=== PATIENT | female | born 1950 | race Caucasian/White ===

== ENCOUNTER 2018-04-28 19:06 | Emergency (ER) | payer MEDICARE ==
[2018-04-28 19:12] VITALS: RESP 18; TEMP 98
[2018-04-28] MEDS ORDERED: SODIUM CHLORIDE 0.9% 1,000 ML IV STA (19:27)
[2018-04-28] MEDS ORDERED: SODIUM CHLORIDE 0.9% 500 ML 500 ML IV STA (19:31)
--- NOTE | 2018-04-28 19:31 | ED ---
General Adult HPI - General Source: patient, RN notes reviewed Mode of arrival: ambulatory Limitations: no limitations <Pepe Tejeda - Last Filed: 04/28/18 21:20> <Law Silvestre - Last Filed: 04/29/18 00:02> - General Chief complaint: Recheck/Abnormal Lab/Rx Stated complaint: Hypertension Time Seen by Provider: 04/28/18 19:12 - History of Present Illness Initial comments: This is a 67-year-old female with a history of hypertension who presents tonight with complaints of not feeling well suggestive past 3 days but for the most part over last week she's had elevated blood pressure some right-sided chest pain she denies steroids for upper respiratory infection she states she's been not feeling well for this. Time shortness breath occipital headache rhinorrhea sweats sore throat. She states she is on steroids and currently on antibiotics for urinary tract infection she believes it UTI is getting better. Also complains some earaches. No other complaints no overt phlegm production with cough. Patient also states that she had a massage adjustment of her neck 2 days ago she still has pain from that. (Pepe Tejeda) - Related Data Home Medications Medication Instructions Recorded Confirmed Aspirin 81 mg PO QAM 03/31/14 06/06/16 Atorvastatin [Lipitor] 20 mg PO QAM 03/31/14 06/06/16 Losartan [Cozaar] 100 mg PO BID 03/31/14 06/06/16 metFORMIN HCL 1,000 mg PO BID 03/31/14 06/06/16 Cetirizine HCl 10 mg PO HS 11/10/14 06/06/16 [place]-3 Fatty Acids/Fish Oil [Fish 1 cap PO BID 11/10/14 06/06/16 Oil 1,000 mg Softgel] Albuterol Inhaler [Ventolin Hfa 2 puff INHALATION RT-BID 06/25/15 06/06/16 Inhaler] Omeprazole [PriLOSEC] 40 mg PO HS 06/25/15 06/06/16 Furosemide 20 mg PO QAM 03/11/16 06/06/16 Nitroglycerin Sl Tabs [Nitrostat] 0.4 mg SUBLINGUAL Q5M PRN 03/11/16 06/06/16 ALPRAZolam [Xanax] 0.25 mg PO BID PRN 06/02/16 06/06/16 Temazepam [Restoril] 15 mg PO HS PRN 06/02/16 06/06/16 cloNIDine HCL [Catapres] 0.3 mg PO HS 06/02/16 06/06/16 Allergies Allergy/AdvReac Type Severity Reaction Status Date / Time codeine Allergy Severe headache Verified 04/28/18 19:12 Iodinated Contrast- Oral and Allergy Anaphylaxis Verified 04/28/18 19:12 IV Dye [Iodinated Contrast Media - Oral and] shrimp Allergy Severe "Throat Uncoded 04/28/18 19:12 swelled shut and stopped breathing" Review of Systems ROS Other: All systems not noted in ROS Statement are negative. <Pepe Tejeda - Last Filed: 04/28/18 21:20> ROS Other: All systems not noted in ROS Statement are negative. <Law Silvestre - Last Filed: 04/29/18 00:02> ROS Statement: Those systems with pertinent positive or pertinent negative responses have been documented in the HPI. Past Medical History Past Medical History: Chest Pain / Angina, Diabetes Mellitus, Fibromyalgia, GERD /Reflux, Hyperlipidemia, Hypertension, Osteoarthritis (OA), Pneumonia, Sleep Apnea/CPAP/BIPAP Additional Past Medical History / Comment(s): 06/25/15 Pt presented to [facility] with mid chest pain which radiated up into her throat. Symptom onset at 0400 this AM. She is admitted with clinical impression of unstable angina pectoris. Other HX: NIDDM, does not use cpap for sleep apnea, sinus problems, R foot fx x 2 in the past, porokeratosis, History of Any Multi-Drug Resistant Organisms: None Reported Past Surgical History: Back Surgery, Bladder Surgery, Cholecystectomy, Heart Catheterization, Hysterectomy, Orthopedic Surgery Additional Past Surgical History / Comment(s): Cardiac cath many yrs ago which was normal, nasal/sinus surgery, arthroscopy biceps tenotomy debridement open rotator cuff repair to L shoulder, trigger release vazquez thumbs, tendon surgery vazquez elbows, bladder suspension, tubes in and out of bilateral ears, R leg fatty lipoma excision, EGD's, colonoscopy with benign polypectomy, 2010 lumbar decompression and fusion, R carpal tunnel release, bilateral cataract removals with lens implants. Past Anesthesia/Blood Transfusion Reactions: Previous Problems w/ Anesthesia Additional Past Anesthesia/Blood Transfusion Reaction / Comment(s): "hard to wake up". Pt has claustrophobia Past Psychological History: No Psychological Hx Reported Smoking Status: Never smoker Past Alcohol Use History: None Reported Past Drug Use History: None Reported - Past Family History Sister(s) Family Medical History: Cancer Additional Family Medical History / Comment(s): Sister is a stomach cancer survivor. Father Family Medical History: Dementia Additional Family Medical History / Comment(s): Father of alzheimer's dx at age 73 yrs. Mother Family Medical History: Cancer, Hypertension Additional Family Medical History / Comment(s): Mother had cervical cancer. She is alive and 94 yrs old. <NikhilPepe - Last Filed: 04/28/18 21:20> General Exam Limitations: no limitations General appearance: alert, anxious Head exam: Present: atraumatic, normocephalic, normal inspection Eye exam: Present: normal appearance, PERRL, EOMI. Absent: scleral icterus, conjunctival injection, periorbital swelling ENT exam: Present: other (Boggy nasal mucosa dull TMs) Neck exam: Present: normal inspection, tenderness, full ROM. Absent: lymphadenopathy Respiratory exam: Present: normal lung sounds bilaterally. Absent: respiratory distress, wheezes, rales, rhonchi, stridor Cardiovascular Exam: Present: normal rhythm, tachycardia, normal heart sounds. Absent: systolic murmur, diastolic murmur, rubs, gallop, clicks GI/Abdominal exam: Present: soft, normal bowel sounds. Absent: distended, tenderness, guarding, rebound, rigid Extremities exam: Present: normal inspection, full ROM, normal capillary refill. Absent: tenderness, pedal edema, joint swelling, calf tenderness Back exam: Present: normal inspection Neurological exam: Present: alert, oriented X3, CN II-XII intact Psychiatric exam: Present: normal affect, normal mood Skin exam: Present: warm, dry, intact, normal color. Absent: rash <Pepe Tejeda - Last Filed: 04/28/18 21:20> <Law Silvestre - Last Filed: 04/29/18 00:02> - General Exam Comments Initial Comments: This is a well-developed well-nourished awake alert oriented 3 female (Nikhil Pepe) Course <Pepe Tejeda - Last Filed: 04/28/18 21:20> <Law Silvestre - Last Filed: 11/04/18 00:02> Vital Signs 04/28/18 04/28/18 04/28/18 19:09 20:20 21:00 Temperature 98.0 F Pulse Rate 127 H 101 H 99 Respiratory 18 18 18 Rate Blood Pressure 175/84 164/96 171/88 O2 Sat by Pulse 96 94 L 96 Oximetry 04/28/18 04/28/18 22:00 23:00 Temperature Pulse Rate 93 87 Respiratory 18 18 Rate Blood Pressure 175/94 157/91 O2 Sat by Pulse 94 L 96 Oximetry - Reevaluation(s) Reevaluation #1: 04/28/18 21:20 The patient's case will be endorsed to Dr. Silvestre at our shift change (Pepe Tejeda) EKG Findings - EKG Results: EKG: interpreted by ERMD (Sinus tachycardia rate 114 AL interval 140 QRS duration 80 QT since QTC 318/438 LVH) <Pepe Tejeda - Last Filed: 04/28/18 21:20> Medical Decision Making - Lab Data Result diagrams: 04/28/18 19:45 04/28/18 19:45 <Pepe Tejeda - Last Filed: 04/28/18 21:20> - Lab Data Result diagrams: 04/28/18 19:45 04/28/18 19:45 <Law Silvestre - Last Filed: 04/29/18 00:02> - Lab Data Lab Results 04/28/18 04/28/18 04/28/18 Range/Units 19:45 19:45 19:45 WBC 13.0 H (3.8-10.6) k/uL RBC 5.25 (3.80-5.40) m/uL Hgb 14.3 (11.4-16.0) gm/dL Hct 44.9 (34.0-46.0) % MCV 85.5 (80.0-100.0) fL MCH 27.2 (25.0-35.0) pg MCHC 31.8 (31.0-37.0) g/dL RDW 14.4 (11.5-15.5) % Plt Count 221 (150-450) k/uL Neutrophils % 74 % Lymphocytes % 16 % Monocytes % 8 % Eosinophils % 1 % Basophils % 0 % Neutrophils # 9.6 H (1.3-7.7) k/uL Lymphocytes # 2.1 (1.0-4.8) k/uL Monocytes # 1.0 (0-1.0) k/uL Eosinophils # 0.2 (0-0.7) k/uL Basophils # 0.0 (0-0.2) k/uL Sodium 137 (137-145) mmol/L Potassium 4.1 (3.5-5.1) mmol/L Chloride 100 (98-107) mmol/L Carbon Dioxide 23 (22-30) mmol/L Anion Gap 14 mmol/L BUN 27 H (7-17) mg/dL Creatinine 0.95 (0.52-1.04) mg/dL Est GFR (CKD-EPI)AfAm 71 (>60 ml/min/1.73 sqM) Est GFR (CKD-EPI)NonAf 62 (>60 ml/min/1.73 sqM) Glucose 349 H (74-99) mg/dL POC Glucose (mg/dL) (75-99) mg/dL POC Glu Temp Recruiter ID Calcium 10.1 (8.4-10.2) mg/dL Magnesium 1.4 L (1.6-2.3) mg/dL Total Bilirubin 0.4 (0.2-1.3) mg/dL AST 15 (14-36) U/L ALT 18 (9-52) U/L Alkaline Phosphatase 196 H (38-126) U/L Total Creatine Kinase 26 L (30-135) U/L CK-MB (CK-2) 2.2 (0.0-2.4) ng/mL CK-MB (CK-2) Rel Index 8.5 Troponin I <0.012 (0.000-0.034) ng/mL Total Protein 7.4 (6.3-8.2) g/dL Albumin 4.3 (3.5-5.0) g/dL Amylase 69 (30-110) U/L Lipase 345 H (23-300) U/L Urine Color Urine Appearance (Clear) Urine pH (5.0-8.0) Ur Specific [place] (1.001-1.035) Urine Protein (Negative) Urine Glucose (UA) (Negative) Urine Ketones (Negative) Urine Blood (Negative) Urine Nitrite (Negative) Urine Bilirubin (Negative) Urine Urobilinogen (<2.0) mg/dL Ur Leukocyte Esterase (Negative) Influenza Type A RNA (Not Detectd) Influenza Type B (PCR) (Not Detectd) 04/28/18 04/28/18 04/28/18 Range/Units 20:47 20:47 22:38 WBC (3.8-10.6) k/uL RBC (3.80-5.40) m/uL Hgb (11.4-16.0) gm/dL Hct (34.0-46.0) % MCV (80.0-100.0) fL MCH (25.0-35.0) pg MCHC (31.0-37.0) g/dL RDW (11.5-15.5) % Plt Count (150-450) k/uL Neutrophils % % Lymphocytes % % Monocytes % % Eosinophils % % Basophils % % Neutrophils # (1.3-7.7) k/uL Lymphocytes # (1.0-4.8) k/uL Monocytes # (0-1.0) k/uL Eosinophils # (0-0.7) k/uL Basophils # (0-0.2) k/uL Sodium (137-145) mmol/L Potassium (3.5-5.1) mmol/L Chloride (98-107) mmol/L Carbon Dioxide (22-30) mmol/L Anion Gap mmol/L BUN (7-17) mg/dL Creatinine (0.52-1.04) mg/dL Est GFR (CKD-EPI)AfAm (>60 ml/min/1.73 sqM) Est GFR (CKD-EPI)NonAf (>60 ml/min/1.73 sqM) Glucose (74-99) mg/dL POC Glucose (mg/dL) 222 H (75-99) mg/dL POC Glu Temp Recruiter ID Angelika Landeros Calcium (8.4-10.2) mg/dL Magnesium (1.6-2.3) mg/dL Total Bilirubin (0.2-1.3) mg/dL AST (14-36) U/L ALT (9-52) U/L Alkaline Phosphatase (38-126) U/L Total Creatine Kinase (30-135) U/L CK-MB (CK-2) (0.0-2.4) ng/mL CK-MB (CK-2) Rel Index Troponin I (0.000-0.034) ng/mL Total Protein (6.3-8.2) g/dL Albumin (3.5-5.0) g/dL Amylase (30-110) U/L Lipase (23-300) U/L Urine Color Light Yellow Urine Appearance Clear (Clear) Urine pH 5.5 (5.0-8.0) Ur Specific [place] 1.009 (1.001-1.035) Urine Protein Negative (Negative) Urine Glucose (UA) 4+ H (Negative) Urine Ketones Negative (Negative) Urine Blood Negative (Negative) Urine Nitrite Negative (Negative) Urine Bilirubin Negative (Negative) Urine Urobilinogen <2.0 (<2.0) mg/dL Ur Leukocyte Esterase Negative (Negative) Influenza Type A RNA Not Detected (Not Detectd) Influenza Type B (PCR) Not Detected (Not Detectd) Disposition <Pepe Tejeda - Last Filed: 04/28/18 21:20> Is patient prescribed a controlled substance at d/c from ED?: No <Law Silvestre - Last Filed: 04/29/18 00:02> Clinical Impression: Hypertension, Diabetes, Upper respiratory infection Disposition: HOME SELF-CARE Instructions: Acute Bronchitis (ED) Referrals: Jean-Paul Mahan DO [Primary Care Provider] - 1-2 days
--- NOTE | 2018-04-28 20:14 | XR ---
EXAMINATION TYPE: XR chest 2V DATE OF EXAM: 04/28/2018 COMPARISON: Prior chest x-ray 11/12/2015 HISTORY: Cough and chest pain TECHNIQUE: Frontal and lateral views of the chest are obtained. FINDINGS: Patient is rotated. There is no focal air space opacity, pleural effusion, or pneumothorax seen. The cardiac silhouette size is stable. The osseous structures are intact. IMPRESSION: No acute cardiopulmonary process.
[2018-04-28 20:42] LABS: Basophils % (A) 0 %; Eosinophils # (A) 0.2 k/uL (0-0.7); Eosinophils % (A) 1 %; HCT 44.9 % (34.0-46.0); HGB 14.3 gm/dL (11.4-16.0); Lymphocytes # (A) 2.1 k/uL (1.0-4.8); Lymphocytes % (A) 16 %; MCH 27.2 pg (25.0-35.0); MCHC 31.8 g/dL (31.0-37.0); MCV 85.5 fL (80.0-100.0); Mean Platelet Volume 7.4; Monocytes % (A) 8 %; Neutrophils # (A) 9.6 k/uL (1.3-7.7); Neutrophils % (A) 74 %; Platelet Count 221 k/uL (150-450); RBC 5.25 m/uL (3.80-5.40); RDW 14.4 % (11.5-15.5)
[2018-04-28 20:57] LABS: Albumin 4.3 g/dL (3.5-5.0); Calcium 10.1 mg/dL (8.4-10.2); Magnesium 1.4 mg/dL (1.6-2.3); Potassium 4.1 mmol/L (3.5-5.1); Total Bilirubin 0.4 mg/dL (0.2-1.3); Total Protein 7.4 g/dL (6.3-8.2)
[2018-04-28] MEDS ORDERED: MAGNESIUM SULFATE-D5W PMX 1 GM in DEXTROSE/WATER 1 100ML.BAG IVPB ONE (21:17)
[2018-04-28 21:23] LABS: Creatine Kinase 26 U/L (30-135)
[2018-04-28 21:36] LABS: Creatine Kinase MB 2.2 ng/mL (0.0-2.4); Troponin I <0.012 ng/mL (0.000-0.034)
[2018-04-28 21:40] LABS: Appearance,Urine Clear (Clear); Bilirubin,Urine Negative (Negative); Blood,Urine Negative (Negative); Color,Urine Light Yellow; Glucose,Urine (UA) 4+ (Negative); Ketones,Urine Negative (Negative); Leukocyte Esterase,Urine Negative (Negative); Nitrite,Urine Negative (Negative); PH, Urine 5.5 (5.0-8.0); Protein,Urine Negative (Negative); Specific Gravity,Urine 1.009 (1.001-1.035); Urobilinogen,Urine <2.0 mg/dL (<2.0)
[2018-04-28] MEDS ORDERED: SODIUM CHLORIDE 0.9% 1,000 ML IV ONE (22:26)
[2018-04-28] MEDS ORDERED: INSULIN REGULAR 100 UNIT/ML VIAL SQ STA (22:26)
[2018-04-28 22:42] LABS: Glucose,Whole Blood 222 mg/dL (75-99)
[2018-04-29 00:02] VITALS: BP 158/96; PULSE 99
[2018-04-29] MEDS ORDERED: IBUPROFEN 400 MG TAB PO STA (00:03)
== END 2018-04-29 00:19 | disposition home or self-care (01) ==
LOC: EC 19:06
DX: J06.9 Acute upper respiratory infection, unspecified (principal); I10 Essential (primary) hypertension; E11.9 Type 2 diabetes mellitus without complications; R00.0 Tachycardia, unspecified; N39.0 Urinary tract infection, site not specified; H92.03 Otalgia, bilateral; K21.9 Gastro-esophageal reflux disease without esophagitis; M19.90 Unspecified osteoarthritis, unspecified site; Z88.5 Allergy status to narcotic agent; Z91.013 Allergy to seafood; Z91.041 Radiographic dye allergy status; Z79.82 Long term (current) use of aspirin; Z79.84 Long term (current) use of oral hypoglycemic drugs; Z79.899 Other long term (current) drug therapy; Z82.49 Family history of ischemic heart disease and other diseases of the circulatory system; Z95.818 Presence of other cardiac implants and grafts
CPT/HCPCS: 36415; 93005; 80053; 82150; 82550; 82553; 83690; 83735; 84484; 85025; 81003; 87040; 87502; 71046; 99284; 96365; 96361 ×4; J3475

== ENCOUNTER → 2018-12-07 | Outpatient (CLI) | payer MEDICARE ==
--- NOTE | 2018-12-11 15:04 | P.ARTDOP ---
Arterial Doppler LOWER EXTREMITY ARTERIAL DOPPLER: DATE OF SERVICE: 12/07/2018 Reason for study: Bilateral leg pain. Doppler waveforms: Multiphasic bilaterally throughout. Pulse volume recording: []. Pressure gradients: None. Ankle-brachial indices: Greater than 1 bilaterally. Toe pressures: 136 on the right, 136 on the left Impression: Normal study.
== END | disposition home or self-care (01) ==
LOC: RADUSWWP 11:25
PROVIDERS: ATTEND Physical Medicine & Rehabilitation
DX: M79.661 Pain in right lower leg (principal); M79.662 Pain in left lower leg; M54.5 Low back pain; Z98.1 Arthrodesis status
CPT/HCPCS: 93922; 93923

== ENCOUNTER → 2019-04-03 | Outpatient (CLI) | payer MEDICARE ==
--- NOTE | 2019-04-03 09:23 | US ---
EXAMINATION TYPE: US venous doppler duplex LE LT DATE OF EXAM: 04/03/2019 9:10 AM COMPARISON: NONE CLINICAL HISTORY: M79.972 pain,Left lower extremity. Left leg pain and swelling. SIDE PERFORMED: Left TECHNIQUE: The lower extremity deep venous system is examined utilizing real time linear array sonog claudio with graded compression, doppler sonography and color-flow sonography. VESSELS IMAGED: External Iliac Vein (EIV) Common Femoral Vein Deep Femoral Vein Greater Saphenous Vein * Femoral Vein Popliteal Vein Small Saphenous Vein * Proximal Calf Veins (* superficial vessels) Left Leg: Negative for DVT Grayscale, color doppler, spectral doppler imaging performed of the deep veins of the left lower extr emity. There is normal flow, compressibility, vascular waveforms. IMPRESSION: No sonographic evidence of deep venous thrombosis within the left lower extremity.
== END ==
LOC: RADUSWWP 08:53
PROVIDERS: ATTEND Orthopaedic Surgery
DX: M79.672 Pain in left foot (principal)

== ENCOUNTER 2020-02-14 11:02 | Day surgery (SDC) | payer MEDICARE ==
[2020-02-13 08:44] VITALS: BMI 34.0
[~2020-02-14 11:02] MED LIST: ALPRAZolam 0.25 MG TAB PO PRN; ALPRAZolam 0.5 MG TAB PO PRN; ASPIRIN 325 MG TAB PO ONE; ATORVASTATIN 80 MG TAB PO ONE; NITROGLYCERIN SL TABS 0.4 MG TAB SUBLINGUAL PRN; SODIUM CHLORIDE 0.9% 1,000 ML in EMPTY BAG 1 BAG IV ONE
[2020-02-14] MEDS ORDERED: SODIUM CHLORIDE 0.9% 1,000 ML IV ONE (11:25)
[2020-02-14] MEDS ORDERED: VERAPAMIL 2.5 MG/ML 2 ML AMP ONE (11:41)
[2020-02-14] MEDS ORDERED: LIDOCAINE 1% INJ 10MG/ML (20 ML MDV) ONE (11:41)
[2020-02-14 11:51] LABS: Glucose,Whole Blood 258 mg/dL (75-99)
[2020-02-14 11:56] VITALS: RESP 16; TEMP 98.4
[2020-02-14] MEDS ORDERED: INSULIN ASPART (NovoLOG) 100 UNIT/ML VIAL SQ SCH (12:30)
[2020-02-14] MEDS ORDERED: fentaNYL (PF) 50 MCG/ML 2 ML AMP ONE (13:01)
[2020-02-14] MEDS ORDERED: HEPARIN SODIUM 1,000 UN/ML (10ML VL) ONE (13:01)
[2020-02-14] MEDS ORDERED: MIDAZOLAM 2 MG/2 ML VIAL IVP ONE (13:02)
[2020-02-14] MEDS ORDERED: fentaNYL (PF) 50 MCG/ML 2 ML AMP IVP ONE (13:02)
[2020-02-14] MEDS ORDERED: LIDOCAINE 1% INJ 10MG/ML (20 ML MDV) SQ ONE (13:05)
[2020-02-14] MEDS ORDERED: HEPARIN SODIUM 1,000 UN/ML (10ML VL) IV ONE (13:06)
[2020-02-14] MEDS: VERAPAMIL SYRINGE (5 MG/10 ML) INTRAARTER ONE ×2 (13:06→13:21)
[2020-02-14] MEDS ORDERED: IOPAMIDOL-370 125ML BTL INJ ONE (13:21)
[2020-02-14] MEDS ORDERED: RX INFO: IV CONTRAST WAS GIVEN 1 EACH MISC MISCELLANE PRN (13:24)
[2020-02-14] MEDS ORDERED: SODIUM CHLORIDE 0.9% 1,000 ML IV SCH (13:30)
--- NOTE | 2020-02-14 16:43 | CC ---
CARDIAC CATHETERIZATION REPORT DATE OF SERVICE: 02/14/2020 PERFORMING PHYSICIAN: Wilmar Pion M.D. PROCEDURES PERFORMED: 1. Selective right and left coronary angiogram. 2. Left heart catheterization. INDICATION: This is a very pleasant 69-year-old female patient with multiple risk factors who was experiencing chest pain with exertion concerning for severe underlying coronary artery disease. Because of that, heart catheterization was advised. APPROACH: Right radial artery. COMPLICATIONS: None. LEVEL OF SEDATION: Moderate, with sedation length of 17 minutes. PROCEDURE DESCRIPTION: After obtaining informed consent, the patient was brought to the cardiac assistant laboratory director. The right radial artery was cannulated using micropuncture technique. The micropuncture wire passed easily. Then I placed a 6-Omani sheath at the right radial artery. After that I gave the patient 2 mg of verapamil IA and 10,000 units of heparin IV. Selective right and left coronary angiogram was performed with JR4 and JL3 catheters. Left heart catheterization was performed using the JL3 catheter, which crossed the aortic valve. Then I did pullback across the valve. The procedure was completed without any complication. SELECTIVE CORONARY ANGIOGRAM: 1. The right coronary artery is a large-caliber vessel. It is a dominant vessel. The distal RCA just before the bifurcation into PDA and PLV branches has a disease that appeared to be mild, in the range of 20% to 30% only. 2. The left main is angiographically normal. It bifurcates into LCX and LAD. 3. The LCX is a large-caliber vessel. It is a nondominant vessel. The LCX is angiographically normal. In the midportion it gives rise to a large OM branch which appeared to be angiographically normal. 4. The LAD. The proximal LAD appeared to be angiographically normal. The mid LAD has mild disease only and the LAD distally appeared to be angiographically normal. The LAD gives rise to first and second diagonal branches. Both appeared to be angiographically normal. HEMODYNAMICS: The LVEDP was 16 mmHg without significant gradient across the aortic valve. CONCLUSION: 1. Mild nonobstructive coronary artery disease. 2. Mildly elevated LVEDP. POST-PROCEDURE MANAGEMENT: 1. Medical treatment. 2. Follow up with the patient. MMODL / IJN: [id number] /
[2020-02-14 17:41] VITALS: BP 140/62; PULSE 78
--- NOTE | 2020-02-14 17:58 | LTR ---
February 14, 2020 To: Dr. Mahan Re: Nicole Almendarez (46) Dear Dr. Mahan, Nicole Almendarez underwent today heart catheterization and that revealed only mild nonobstructive coronary artery disease. I advise maximized medical treatment and continued followup. I want to thank you for allowing us to participate in her care and please do not hesitate to call if you have any question or concern. Sincerely, Wilmar Pino M.D. JANEEN / TATIANNA: [id number] /
== END 2020-02-14 18:31 | disposition home or self-care (01) ==
LOC: CATHCVL 11:02
PROVIDERS: ATTEND Internal Medicine Interventional Cardiology
DX: I25.110 Atherosclerotic heart disease of native coronary artery with unstable angina pectoris (principal); I10 Essential (primary) hypertension; I42.1 Obstructive hypertrophic cardiomyopathy; E11.9 Type 2 diabetes mellitus without complications; E78.2 Mixed hyperlipidemia; Z79.82 Long term (current) use of aspirin; Z79.84 Long term (current) use of oral hypoglycemic drugs; Z79.899 Other long term (current) drug therapy; Z88.5 Allergy status to narcotic agent; Z88.6 Allergy status to analgesic agent; Z88.2 Allergy status to sulfonamides; Z91.041 Radiographic dye allergy status
CPT/HCPCS: 93458; C1769 ×2; C1894; J2250; J2001; J3010; J1644; Q9967

== ENCOUNTER → 2021-04-19 | Outpatient (CLI) | payer MEDICARE ==
--- NOTE | 2021-04-20 10:48 | MM ---
Reason for exam: screening (asymptomatic). Last mammogram was performed 5 years and 9 months ago. History: Patient is postmenopausal. Physical Findings: A clinical breast exam by your physician is recommended on an annual basis and results should be correlated with mammographic findings. MG 3D Screening Mammo W/Cad Bilateral CC and MLO view(s) were taken. Prior study comparison: July 06, 2015, mammogram, performed at [facility]. April 25, 2014, mammogram, performed at [facility]. There are scattered fibroglandular densities. Finding: There are typically benign round, diffuse/scattered calcifications in both breasts. There is a chronic nodularity in the left breast. There is no discrete abnormality. New finding and increase in number of calcifications since July 06, 2015. ASSESSMENT: Benign, BI-RAD 2 RECOMMENDATION: Routine screening mammogram of both breasts in 1 year.
== END | disposition home or self-care (01) ==
LOC: RADMAMWWP 15:50
PROVIDERS: ATTEND Family Medicine
DX: Z12.31 Encounter for screening mammogram for malignant neoplasm of breast (principal); Z78.0 Asymptomatic menopausal state
CPT/HCPCS: 77063; 77067

== ENCOUNTER → 2021-11-08 | Outpatient (CLI) | payer MEDICARE ==
--- NOTE | 2021-11-09 17:05 | BD ---
EXAMINATION TYPE: Axial Bone Density DATE OF EXAM: 11/08/2021 COMPARISON: NONE CLINICAL HISTORY: 70 years year old Female. ICD-10 CODE: Z78.0 post menopausal Height: 61.2 Weight: 180 FRAX RISK QUESTIONS: History of Fracture in Adulthood: YES INSULIN BASED DIABETIC TYPE 2 RISK FACTORS HISTORY OF: HX OF TAIL BONE FX, LT SIDE OF PELVIS, 2021, History of Wrist Fracture: YES, LT WRIST, YOUTH Surgery to Spine HX OF FUSION TO L4, 5, AND POSSIBLY SACRUM...LONG AGO Postmenopausal woman: YES, AT ABOUT 46 YRS OLD Lost more than 2 inches in height since high school: Hyperparathyroidism: NO Adrenal Insufficiency: NO MEDICATIONS: Additional Medications: BP MEDS, ANTI ANXIETY/DEPRESSION MEDS, OZEMPIC, GLIMEPIRIDE, CHOLESTEROL MED, REFLUX MEDS, VIT D Additional History: HYPERTENSION, DIABETIC, ANXIETY, CHOLESTEROL, REFLUX, EXAM MEASUREMENTS: Bone mineral densitometry was performed using the [employer] System. SPINE NOT SCANNED, SPINAL FUSION, L4, 5, AND POSSIBLE SACRAL FUSION Bone mineral density about the R hip (g/cm2): 0.941 Bone mineral density about the L hip (g/cm2): 0.875 T Score values are as follows: -----R Neck: -2.0 -----L Neck: -2.1 -----R Total: -0.5 -----L Total: -1.1 Bone mineral density FIRST DEXA AT MCP Bone mineral density about the R Wrist (g/cm2): 0.561 T Score values are as follows: -----Dist. R+U: 0.5 -----Prox. R+U: -1.4 -----Radius total: -1.5 Bone mineral density FIRST BONE DENSITY AT MCP FRAX%s: The graph provided illustrates a 19.1% chance for a major osteoporotic fx and a 4.2% chance f or the hips probability for fx in 10 years time. IMPRESSION: Osteopenia (T Score between -2.5 and -1). There is slightly increased risk of fracture and the patient may be considered for treatment. Re-Screen 2-5 years. NOTE: T-SCORE=SD OF THE YOUNG ADULT MEAN.
== END | disposition home or self-care (01) ==
LOC: RADBDWWP 10:35
PROVIDERS: ATTEND Family Medicine
DX: M85.80 Other specified disorders of bone density and structure, unspecified site (principal); Z78.0 Asymptomatic menopausal state
CPT/HCPCS: 77080

== ENCOUNTER → 2021-11-17 | Outpatient (CLI) | payer MEDICARE ==
--- NOTE | 2021-11-17 16:50 | MR ---
EXAMINATION TYPE: MR shoulder RT wo con DATE OF EXAM: 11/17/2021 COMPARISON: None HISTORY: Right shoulder pain, fell off of a roof Jan 2021. TECHNIQUE: Multiplanar, multisequence imaging of the right shoulder is performed without contrast. FINDINGS: Rotator Cuff: There is abnormal thickening of the rotator cuff, abnormal increased intrinsic signal, at the insertion of the supraspinatus tendon there is a complete partial tear, there is attenuation o f the rotator cuff tendon at the level of the insertion, supraspinatus tendon shows abnormal thickeni ng. Fluid signal is present in the subacromial subdeltoid bursa. Acromioclavicular Joint: Arthropathy at the acromioclavicular joint is noted, there is a distal acrom ial spur Glenohumeral Joint: Remodeling the humeral head is present, there is spurring present Labrum: The labrum appears grossly intact given limitation of non-arthrogram study. There may be a gonsalves blabral foramen present Biceps Tendon: The long head of biceps is in normal location within bicipital groove peripherally, qu estion some mild medial subluxation or centrally. Some fluid signal is present along the long head of biceps tendon Bone marrow signal: Pseudocysts are present within the humeral head Other: Some fluid signal is also present along the subscapularis musculotendinous junction IMPRESSION: Partial full-thickness tear rotator cuff tendon, tendinopathy changes, osteoarthritic change noted at the glenohumeral joint and acromioclavicular joint, correlate for impingement, additional findings marifer myers
== END | disposition home or self-care (01) ==
LOC: RADMRIMAIN 14:35
PROVIDERS: ATTEND Orthopaedic Surgery
DX: M19.011 Primary osteoarthritis, right shoulder (principal)